=== PATIENT | male | born 1980 | race African-American/Black ===

== ENCOUNTER 2020-07-14 12:34 | Emergency (ER) | payer OTHER ==
[2020-07-14 13:00] VITALS: BP 150/85; PULSE 86; TEMP 98.5; BMI 28.5
== END 2020-07-14 14:31 | disposition home or self-care (01) ==
LOC: JER 12:34
DX: J30.2 Other seasonal allergic rhinitis (principal)
CPT/HCPCS: 71046-TC-FY; 93005; 93010; 99284-25